=== PATIENT | female | born 1985 | race Caucasian/White ===

== ENCOUNTER → 2017-12-31 | Outpatient (CLI) | payer OTHER ==
--- NOTE | 2017-12-31 09:38 | USB ---
Reason for exam: clinical finding. Indicated problem(s): palpable abnormality in both breasts. Physical Findings: Nurse Summary: 0.5cm nodule 11 o'clock left breast and 1 o'clock right breast (nurse dw). US Breast BILAT Left breast ultrasound includes all four quadrants, the retroareolar region and axilla. Finding demonstrates a 0.8 x 0.6 x 0.4cm benign node at 2 o'clock, a 0.7 x 0.7 x 0.7cm mixed lesion at 5 o'clock probably a complicated cyst, a 0.4 x 0.2 x 0.2cm cystic, benign lesion at 9 o'clock. Right breast ultrasound includes all four quadrants, the retroareolar region and axilla. Finding demonstrates no cystic or solid lesion seen. No abnormality at either upper outer quadrants at the palpable sites. These results were verbally communicated with the patient and result sheet given to the patient on 12/31/17. ASSESSMENT: Probably benign, BI-RAD 3 RECOMMENDATION: Ultrasound of the left breast in 6 months. (attention 5 o'clock)
== END | disposition home or self-care (01) ==
LOC: RADUSWWP 08:06
PROVIDERS: ATTEND Family Medicine
DX: N63.10 Unspecified lump in the right breast, unspecified quadrant (principal); N63.20 Unspecified lump in the left breast, unspecified quadrant

== ENCOUNTER 2018-11-23 10:10 | Emergency (ER) | payer BC, OTHER ==
[2018-11-23 10:32] VITALS: BP 114/66; PULSE 113; RESP 18
--- NOTE | 2018-11-23 11:15 | XR ---
EXAMINATION TYPE: XR chest 2V DATE OF EXAM: 11/23/2018 COMPARISON: NONE HISTORY: Cough/chest pain and flulike symptoms. TECHNIQUE: Frontal and lateral views of the chest are obtained. FINDINGS: There is no focal air space opacity, pleural effusion, or pneumothorax seen. The cardiac silhouette size is within normal limits. The osseous structures are intact. IMPRESSION: No acute cardiopulmonary process.
[2018-11-23 11:16] VITALS: TEMP 99.8
[2018-11-23] MEDS ORDERED: IBUPROFEN 800 MG TAB PO STA (12:34)
--- NOTE | 2018-11-23 12:38 | ED ---
Fever HPI - General Chief Complaint: Fever Stated Complaint: fever, bodyaches, sorethroat Time Seen by Provider: 11/23/18 10:49 Source: patient, RN notes reviewed Mode of arrival: ambulatory Limitations: no limitations - History of Present Illness Initial Comments: 33-year-old female presents emergency Department chief complaint of fever cough congestion sore throat. Patient states that she has been exposed to people with influenza. Patient states her cough is nonproductive. Denies any ear pain. She does complain of a sore throat which is painful at time. Patient denies any headache, dizziness, neck pain or neck stiffness. Patient has not taken any recent Motrin. She did try some Tylenol earlier. Patient denies any nausea vomiting diarrhea constipation. - Related Data Home Medications Medication Instructions Recorded Confirmed D-Methorphan/PE/Acetaminophen 2 cap PO Q4H PRN 11/23/18 11/23/18 [[facility]icks Dayquil Liquicaps] Doxycycline [Vibramycin] 100 mg PO DIRECTED 11/23/18 11/23/18 Previous Rx's Medication Instructions Recorded Azithromycin [Zithromax Z-pack] 0 mg PO DIRECTED #1 pack 11/23/18 Ibuprofen [Motrin] 600 mg PO Q8HR PRN #30 tab 11/23/18 Allergies Allergy/AdvReac Type Severity Reaction Status Date / Time No Known Allergies Allergy Verified 11/23/18 11:07 Review of Systems ROS Statement: Those systems with pertinent positive or pertinent negative responses have been documented in the HPI. ROS Other: All systems not noted in ROS Statement are negative. Past Medical History Past Medical History: No Reported History History of Any Multi-Drug Resistant Organisms: None Reported Past Surgical History: Section Past Psychological History: No Psychological Hx Reported Smoking Status: Current every day smoker Past Alcohol Use History: Occasional Past Drug Use History: None Reported General Exam Limitations: no limitations General appearance: alert, in no apparent distress Head exam: Present: atraumatic, normocephalic, normal inspection Eye exam: Present: normal appearance, PERRL, EOMI. Absent: scleral icterus, c onjunctival injection, periorbital swelling ENT exam: Present: mucous membranes moist, TM's normal bilaterally, normal external ear exam. Absent: normal exam, normal oropharynx (Mild erythema) Neck exam: Present: normal inspection, full ROM. Absent: tenderness, meningismus, lymphadenopathy Respiratory exam: Present: normal lung sounds bilaterally. Absent: respiratory distress, wheezes, rales, rhonchi, stridor Cardiovascular Exam: Present: normal rhythm, tachycardia, normal heart sounds. Absent: systolic murmur, diastolic murmur, rubs, gallop, clicks Course Vital Signs 11/23/18 11/23/18 10:30 11:14 Temperature 100.2 F H 99.8 F H Pulse Rate 113 H Respiratory 18 Rate Blood Pressure 114/66 O2 Sat by Pulse 100 Oximetry Medical Decision Making - Medical Decision Making 33-year-old female presented for fever cough congestion. Patient patient's influenza testing is negative chest x-ray unremarkable. Patient treated for acute pharyngitis. Return parameters were discussed. - Lab Data Lab Results 11/23/18 Range/Units 11:11 Influenza Type A RNA Not Detected (Not Detectd) Influenza Type B (PCR) Not Detected (Not Detectd) Disposition Clinical Impression: Influenza-like illness, Acute bronchitis, Acute pharyngitis Disposition: HOME SELF-CARE Condition: Stable Instructions (If sedation given, give patient instructions): Fever in Adults (ED) Additional Instructions: Please alternate Tylenol and Motrin as directed.Please return to the Emergency Department if symptoms worsen or any other concerns. Prescriptions: Ibuprofen [Motrin] 600 mg PO Q8HR PRN #30 tab PRN Reason: Pain Azithromycin [Zithromax Z-pack] 0 mg PO DIRECTED #1 pack Is patient prescribed a controlled substance at d/c from ED?: No Referrals: Homar Mauro MD [Primary Care Provider] - 1-2 days Time of Disposition: 12:38
== END 2018-11-23 12:52 | disposition home or self-care (01) ==
LOC: EC 10:10
DX: J20.9 Acute bronchitis, unspecified (principal); J02.9 Acute pharyngitis, unspecified; F17.200 Nicotine dependence, unspecified, uncomplicated
CPT/HCPCS: 71046; 87502; 99283

== ENCOUNTER 2018-12-01 13:28 | Emergency (ER) | payer BC ==
[2018-12-01 13:32] VITALS: BP 124/82; PULSE 88; RESP 18; TEMP 98.1
--- NOTE | 2018-12-01 14:37 | ED ---
General Adult HPI - General Chief complaint: Skin/Abscess/Foreign Body Stated complaint: Something stuck in throat Time Seen by Provider: 12/01/18 13:56 Source: patient Mode of arrival: ambulatory Limitations: no limitations - History of Present Illness Initial comments: Pleasant, well appearing 33-year-old female who denies past medical history presenting today for chief complaint of pain with swallowing. Patient states 2 nights ago she was eating Doritos prior to bed, she states the next morning she woke up with pain and swelling, she states today the pain persisted. Patient states pain increases with big cups water she denies any difficulty swallowing liquids or solids. Patient denies any chest pain, vomiting, hematemesis or hemoptysis. Patient denies cough fever chills or night sweats. Patient denies any difficulty breathing. Remaining review of systems negative, including history of antibiotic use within the last 4 days or taking o [id number]/prescription medications. - Related Data Home Medications Medication Instructions Recorded Confirmed No Known Home Medications 12/01/18 12/01/18 Allergies Allergy/AdvReac Type Severity Reaction Status Date / Time No Known Allergies Allergy Verified 12/01/18 13:44 Review of Systems ROS Statement: Those systems with pertinent positive or pertinent negative responses have been documented in the HPI. ROS Other: All systems not noted in ROS Statement are negative. Past Medical History Past Medical History: No Reported History History of Any Multi-Drug Resistant Organisms: None Reported Past Surgical History: Section Past Psychological History: No Psychological Hx Reported Smoking Status: Current every day smoker Past Alcohol Use History: Occasional Past Drug Use History: None Reported General Exam - General Exam Comments Initial Comments: General: The patient is awake and alert, in no distress, and does not appear acutely ill. Eye: Pupils are equal, round and reactive to light, extra-ocular movements are intact. No nystagmus. There is normal conjunctiva bilaterally. No signs of icterus. Ears, nose, mouth and throat: There are moist mucous membranes and no oral lesions. Oropharynx nonerythematous no tonsillar enlargement exudates or lesions. Uvula midline. Normal swallow. No masses of the neck. Or lymphadenopathy. No tripoding, drooling or muffled voice. Neck: The neck is supple, there is no tenderness or JVD. No crepitus to the patient the anterior chest wall. Cardiovascular: There is a regular rate and rhythm. No murmur, rub or gallop is appreciated. Respiratory: Lungs are clear to auscultation, respirations are non-labored, breath sounds are equal. No wheezes, stridor, rales, or rhonchi. Musculoskeletal: Normal ROM, no tenderness. Strength 5/5. Sensation intact. Pulses equal bilaterally 2+. Neurological: A&O x 3. CN II-XII intact grossly, There are no obvious motor or sensory deficits. Coordination appears grossly intact. Speech is normal. Skin: Skin is warm and dry and no rashes or lesions are noted. Psychiatric: Cooperative, appropriate mood & affect, normal judgment. Limitations: no limitations Course Vital Signs 12/01/18 13:29 Temperature 98.1 F Pulse Rate 88 Respiratory 18 Rate Blood Pressure 124/82 O2 Sat by Pulse 99 Oximetry Medical Decision Making - Medical Decision Making 33-year-old feel presenting for pain with swallowing. Patient appears well upon arrival no signs of acute distress. Patient denies any difficulty swallowing. Patient able to swallow liquids and solids. Physical examination unremarkable. Patient denies any ingestion of any substances, or recent administration of prescription or [id number] pills. Patient has no infectious symptoms or signs on physical examination. Patient will be discharged with primary care follow-up and return for worsening symptoms or hematemesis, hemoptysis, chest pain. Pt VS within acceptable limits. Pt discharge appearing well. Discussed case with attending provider Dr. Thomas this time we feel pt is stable for discharge and pain is most likely from superficial abrasion/laceration from abrasive food substance. Disposition Clinical Impression: Odynophagia Disposition: HOME SELF-CARE Condition: Good Instructions (If sedation given, give patient instructions): Esophageal Foreign Body (ED) Additional Instructions: Please use medication as discussed. Please follow-up with family doctor in the next 2 days of symptoms have not improved. Please return to emergency room if the symptoms increase or worsen or for any other concerns. Is patient prescribed a controlled substance at d/c from ED?: No Referrals: Homar Mauro MD [Primary Care Provider] - 1-2 days Time of Disposition: 14:37
== END 2018-12-01 14:48 | disposition home or self-care (01) ==
LOC: EC 13:28
DX: R13.10 Dysphagia, unspecified (principal); R07.0 Pain in throat; R22.1 Localized swelling, mass and lump, neck; F17.200 Nicotine dependence, unspecified, uncomplicated
CPT/HCPCS: 99283

== ENCOUNTER 2019-02-05 03:53 | Emergency (ER) | payer BC, OTHER ==
[2019-02-05 03:59] VITALS: BP 116/77; PULSE 71; RESP 20; TEMP 98.5
--- NOTE | 2019-02-05 04:20 | ED ---
URI HPI - General Chief Complaint: Upper Respiratory Infection Stated Complaint: SINDY Time Seen by Provider: 02/05/19 04:03 Source: patient Mode of arrival: ambulatory Limitations: no limitations - History of Present Illness Initial Comments: Rajesh is a 33-year-old female presents the emergency department today for evaluation of productive cough for 2 weeks duration as well as oral sores. Patient reports approximately 2 weeks ago she saw her primary care physician for this cough, she would advised that there is pneumonia going around and was prescribed an antibiotic however after 3 days to be used she developed a vaginal yeast infection decided to stop taking antibiotic. She reports that 4 days ago she stopped smoking cigarettes but has continued to have a nonproductive cough and sore throat since that time. Patient denies any fevers, chills nausea or vomiting. She does report some nasal congestion and postnasal drip and is also noticed some sores on her tongue. Patient reports that she was evaluated by the physician 2 weeks ago she was told that she may have a sore throat as well. Patient also noted some sore developing on her lip and does have a history of cold sores. MD Complaint: cough Onset/Timin -: week(s) Severity: moderate Consistency: intermittent Improves With: other (Albuterol inhaler) Worsens With: nothing Associated Symptoms: rhinorrhea, nasal congestion, sore throat Treatments Prior to Arrival: antibiotics - Related Data Previous Rx's Medication Instructions Recorded Cetirizine HCl [Zyrtec] 10 mg PO DAILY #30 tab 02/05/19 Fluticasone Nasal [place] [Flonase 2 spr EA NOSTRIL DAILY #1 bottle 02/05/19 Nasal [place]] predniSONE [Deltasone] 40 mg PO DAILY 5 Days #10 tablet 02/05/19 valACYclovir HCL [Valtrex] 1,000 mg PO Q8HR #21 tab 02/05/19 Allergies Allergy/AdvReac Type Severity Reaction Status Date / Time No Known Allergies Allergy Verified 02/05/19 03:59 Review of Systems ROS Statement: Those systems with pertinent positive or pertinent negative responses have been documented in the HPI. ROS Other: All systems not noted in ROS Statement are negative. Past Medical History Past Medical History: No Reported History History of Any Multi-Drug Resistant Organisms: None Reported Past Surgical History: Section Past Psychological History: No Psychological Hx Reported Smoking Status: Current every day smoker Past Alcohol Use History: Occasional Past Drug Use History: None Reported General Exam Limitations: no limitations Course Vital Signs 02/05/19 03:57 Temperature 98.5 F Pulse Rate 71 Respiratory 20 Rate Blood Pressure 116/77 O2 Sat by Pulse 100 Oximetry Medical Decision Making - Medical Decision Making The patient was seen and evaluated history was obtained from patient History and physical exam are concerning for sinusitis with postnasal drip causing a chronic cough in addition the patient is a smoker who quit smoking only 4 days ago. I do feel that this contributes to her cough. Patient reports that throughout her life she has been treated with albuterol for coughs though she's never been formally diagnosed with asthma. exam revealed clear lungs with no crackles rails wheezing have no concern for pneumonia or asthma exacerbation at this time the patient did use her albuterol inhaler prior to arrival Patient does have cold sores developing on her right-sided lower lip as well as some sores in her mouth I will treat for cold sore with Valtrex and steroids. Disposition Clinical Impression: Post-nasal drainage, Smokers' cough, Stomatitis Disposition: HOME SELF-CARE Condition: Stable Instructions (If sedation given, give patient instructions): Canker Sores (ED), Postnasal Drip (DC) Prescriptions: predniSONE [Deltasone] 40 mg PO DAILY 5 Days #10 tablet Fluticasone Nasal [place] [Flonase Nasal [place]] 2 spr EA NOSTRIL DAILY #1 bottle valACYclovir HCL [Valtrex] 1,000 mg PO Q8HR #21 tab Cetirizine HCl [Zyrtec] 10 mg PO DAILY #30 tab Is patient prescribed a controlled substance at d/c from ED?: No Referrals: Homar Mauro MD [Primary Care Provider] - 1-2 days
== END 2019-02-05 04:31 | disposition home or self-care (01) ==
LOC: EC 03:53
DX: K12.1 Other forms of stomatitis (principal); J41.0 Simple chronic bronchitis; R09.82 Postnasal drip; F17.210 Nicotine dependence, cigarettes, uncomplicated
CPT/HCPCS: 99284

== ENCOUNTER 2019-08-26 03:50 | Emergency (ER) | payer OTHER ==
--- NOTE | 2019-08-26 04:23 | ED ---
Abdominal Pain HPI - General Chief Complaint: Abdominal Pain Stated Complaint: Back Pain Time Seen by Provider: 08/26/19 04:21 Source: patient, family Mode of arrival: ambulatory Limitations: no limitations - History of Present Illness Initial Comments: Brooke is a 34-year-old female presents the emergency department today for evaluation of urinary tract infection symptoms and right flank pain. Patient reports that over the weekend she developed some dysuria and urinary frequency. She reports that she tried drinking a lot of water to wash out any urinary infection reports that her symptoms did improve transiently however throughout the day yesterday she had persistent dysuria and urinary frequency. In the evening the discomfort is getting worse and she started having pain in her right flank which prompted her come to the ER however she noted that there was a wait and decided instead to leave. Patient states that she went home and is laying in bed but continues to have pain in her right flank and became concerned that the infection may have travel to her kidney so she came back to the ER for further evaluation. Patient denies any associative fevers chills nausea vomiting or change in bowel habits. She does have a history of occasional UTIs in the past. She denies any concern for or sexual transmitted infections at this time. - Related Data Previous Rx's Medication Instructions Recorded Cetirizine HCl [Zyrtec] 10 mg PO DAILY #30 tab 02/05/19 Fluticasone Nasal [place] [Flonase 2 spr EA NOSTRIL DAILY #1 bottle 02/05/19 Nasal [place]] predniSONE [Deltasone] 40 mg PO DAILY 5 Days #10 tablet 02/05/19 valACYclovir HCL [Valtrex] 1,000 mg PO Q8HR #21 tab 02/05/19 Sulfamethox-Tmp 800-160Mg [Bactrim 1 tab PO Q12HR #10 tab 08/26/19 DS 800-160 mg] Allergies Allergy/AdvReac Type Severity Reaction Status Date / Time No Known Allergies Allergy Verified 08/26/19 04:10 Review of Systems ROS Statement: Those systems with pertinent positive or pertinent negative responses have been documented in the HPI. ROS Other: All systems not noted in ROS Statement are negative. Past Medical History Past Medical History: No Reported History History of Any Multi-Drug Resistant Organisms: None Reported Past Surgical History: Section Past Psychological History: No Psychological Hx Reported Smoking Status: Current some day smoker Past Alcohol Use History: Occasional Past Drug Use History: None Reported General Exam - General Exam Comments Initial Comments: Physical Exam GENERAL: Patient is well-developed and well-nourished. Patient is nontoxic and well- hydrated and is in no distress. HENT: Normocephalic, Atraumatic. EYES: PERRL, EOMI PULMONARY: Unlabored respirations. No audible rales rhonchi or wheezing was noted. CARDIOVASCULAR: There is a regular rate and rhythm without any murmurs gallops or rubs. ABDOMEN: Soft and nontender with normal bowel sounds. Pain to percussion of right flank No pain to palpation in right lower quadrant SKIN: Skin is clear with no lesions or rashes and otherwise unremarkable. : Deferred NEUROLOGIC: Patient is alert and oriented x3. Moving all extremities spontaneously MUSCULOSKELETAL: Normal extremities with adequate strength and full range of motion. No lower extremity swelling or edema. No calf tenderness. PSYCHIATRIC: Normal psychiatric evaluation. Limitations: no limitations Course Vital Signs 08/26/19 08/26/19 08/26/19 04:07 07:30 08:50 Temperature 97.9 F 98.7 F 98.5 F Pulse Rate 74 75 71 Respiratory 20 18 18 Rate Blood Pressure 134/81 116/67 114/61 O2 Sat by Pulse 99 98 99 Oximetry Medical Decision Making - Medical Decision Making Patient was seen and evaluated history is obtained from the patient History of physical exam are concerning for urinary tract infection versus kidney stone though the patient has no history of. Patient had dysuria for 3 days now having right-sided flank pain. No fevers chills nausea or vomiting. Vital signs are within normal limits physical exam is unremarkable. Urinalysis is completed by the fact the patient is currently menstruating and there is blood in the urine however there is evidence of infection with bacteria leuk esterase and 60 white blood cells noted. Macrobid was ordered. Patient very anxious about diagnosing urinary tract infection requesting blood work be done therefore CBC CMP and CRP were ordered. Labs with no significant abnormalities noted, no leukocytosis, only mild elevation of CRP Patient sleeping comfortably upon re-evaluation, results were discussed, patient discharged home on oral bactrim for treatment of UTI Return parameters discussed, patient discharged home in stable condition. - Lab Data Result diagrams: 08/26/19 05:37 08/26/19 05:37 Lab Results 08/26/19 08/26/1919 Range/Units 04:23 04:23 05:37 WBC (3.8-10.6) k/uL RBC (3.80-5.40) m/uL Hgb (11.4-16.0) gm/dL Hct (34.0-46.0) % MCV (80.0-100.0) fL MCH (25.0-35.0) pg MCHC (31.0-37.0) g/dL RDW (11.5-15.5) % Plt Count (150-450) k/uL Neutrophils % % Lymphocytes % % Monocytes % % Eosinophils % % Basophils % % Neutrophils # (1.3-7.7) k/uL Lymphocytes # (1.0-4.8) k/uL Monocytes # (0-1.0) k/uL Eosinophils # (0-0.7) k/uL Basophils # (0-0.2) k/uL Sodium 138 (137-145) mmol/L Potassium 4.3 (3.5-5.1) mmol/L Chloride 105 (98-107) mmol/L Carbon Dioxide 27 (22-30) mmol/L Anion Gap 6 mmol/L BUN 8 (7-17) mg/dL Creatinine 0.55 (0.52-1.04) mg/dL Est GFR (CKD-EPI)AfAm >90 (>60 ml/min/1.73 sqM) Est GFR (CKD-EPI)NonAf >90 (>60 ml/min/1.73 sqM) Glucose 90 (74-99) mg/dL Calcium 9.1 (8.4-10.2) mg/dL Total Bilirubin 0.6 (0.2-1.3) mg/dL AST 23 (14-36) U/L ALT 17 (4-34) U/L Alkaline Phosphatase 67 (38-126) U/L C-Reactive Protein 36.0 H (<10.0) mg/L Total Protein 6.5 (6.3-8.2) g/dL Albumin 3.7 (3.5-5.0) g/dL Urine Color Light Yellow Urine Appearance Cloudy H (Clear) Urine pH 6.5 (5.0-8.0) Ur Specific [place] 1.009 (1.001-1.035) Urine Protein 1+ H (Negative) Urine Glucose (UA) Negative (Negative) Urine Ketones Negative (Negative) Urine Blood Moderate H (Negative) Urine Nitrite Negative (Negative) Urine Bilirubin Negative (Negative) Urine Urobilinogen <2.0 (<2.0) mg/dL Ur Leukocyte Esterase Large H (Negative) Urine RBC >182 H (0-5) /hpf Urine WBC 62 H (0-5) /hpf Ur Squamous Epith Cells <1 (0-4) /hpf Urine Bacteria Rare H (None) /hpf Urine Mucus Rare H (None) /hpf Urine HCG, Qual Not Detected (Not Detectd) 08/26/19 Range/Units 05:37 WBC 9.1 (3.8-10.6) k/uL RBC 4.04 (3.80-5.40) m/uL Hgb 12.1 (11.4-16.0) gm/dL Hct 36.3 (34.0-46.0) % MCV 90.0 (80.0-100.0) fL MCH 29.9 (25.0-35.0) pg MCHC 33.2 (31.0-37.0) g/dL RDW 12.5 (11.5-15.5) % Plt Count 151 (150-450) k/uL Neutrophils % 66 % Lymphocytes % 18 % Monocytes % 7 % Eosinophils % 6 % Basophils % 1 % Neutrophils # 6.0 (1.3-7.7) k/uL Lymphocytes # 1.7 (1.0-4.8) k/uL Monocytes # 0.6 (0-1.0) k/uL Eosinophils # 0.6 (0-0.7) k/uL Basophils # 0.1 (0-0.2) k/uL Sodium (137-145) mmol/L Potassium (3.5-5.1) mmol/L Chloride (98-107) mmol/L Carbon Dioxide (22-30) mmol/L Anion Gap mmol/L BUN (7-17) mg/dL Creatinine (0.52-1.04) mg/dL Est GFR (CKD-EPI)AfAm (>60 ml/min/1.73 sqM) Est GFR (CKD-EPI)NonAf (>60 ml/min/1.73 sqM) Glucose (74-99) mg/dL Calcium (8.4-10.2) mg/dL Total Bilirubin (0.2-1.3) mg/dL AST (14-36) U/L ALT (4-34) U/L Alkaline Phosphatase (38-126) U/L C-Reactive Protein (<10.0) mg/L Total Protein (6.3-8.2) g/dL Albumin (3.5-5.0) g/dL Urine Color Urine Appearance (Clear) Urine pH (5.0-8.0) Ur Specific [place] (1.001-1.035) Urine Protein (Negative) Urine Glucose (UA) (Negative) Urine Ketones (Negative) Urine Blood (Negative) Urine Nitrite (Negative) Urine Bilirubin (Negative) Urine Urobilinogen (<2.0) mg/dL Ur Leukocyte Esterase (Negative) Urine RBC (0-5) /hpf Urine WBC (0-5) /hpf Ur Squamous Epith Cells (0-4) /hpf Urine Bacteria (None) /hpf Urine Mucus (None) /hpf Urine HCG, Qual (Not Detectd) Disposition Clinical Impression: UTI (urinary tract infection) Disposition: HOME SELF-CARE Condition: Stable Instructions (If sedation given, give patient instructions): Urinary Tract Infection in Women (ED) Additional Instructions: Have a urinary tract infection today, we are prescribed antibiotics, complete the course of antibiotics even if her symptoms resolve Follow-up with your primary care physician for repeat urinalysis to ensure the urine infection has resolved Return to the emergency department if you have any worsening fever, pain or nausea and vomiting inability take antibiotics or develop any new or concerning symptoms Prescriptions: Sulfamethox-Tmp 800-160Mg [Bactrim DS 800-160 mg] 1 tab PO Q12HR #10 tab Is patient prescribed a controlled substance at d/c from ED?: No Referrals: Homar Mauro MD [Primary Care Provider] - 1-2 days
[2019-08-26 04:41] LABS: Appearance,Urine Cloudy (Clear); Bacteria,Urine Rare /hpf; Bilirubin,Urine Negative (Negative); Blood,Urine Moderate (Negative); Color,Urine Light Yellow; Glucose,Urine (UA) Negative (Negative); Ketones,Urine Negative (Negative); Leukocyte Esterase,Urine Large (Negative); Mucus,Urine Rare /hpf; Nitrite,Urine Negative (Negative); PH, Urine 6.5 (5.0-8.0); Protein,Urine 1+ (Negative); RBC,Urine >182 /hpf (0-5); Specific Gravity,Urine 1.009 (1.001-1.035); Squamous Epithelial Cell,Urine <1 /hpf (0-4); Urobilinogen,Urine <2.0 mg/dL (<2.0); WBC,Urine 62 /hpf (0-5)
[2019-08-26] MEDS ORDERED: NITROFURANTOIN MONOHYD/M-CRYST 100 MG CAP PO STA (05:27)
[2019-08-26 06:28] LABS: Basophils # (A) 0.1 k/uL (0-0.2); Basophils % (A) 1 %; Eosinophils # (A) 0.6 k/uL (0-0.7); Eosinophils % (A) 6 %; HCT 36.3 % (34.0-46.0); HGB 12.1 gm/dL (11.4-16.0); Lymphocytes # (A) 1.7 k/uL (1.0-4.8); Lymphocytes % (A) 18 %; MCH 29.9 pg (25.0-35.0); MCHC 33.2 g/dL (31.0-37.0); Mean Platelet Volume 10.2; Monocytes # (A) 0.6 k/uL (0-1.0); Monocytes % (A) 7 %; Neutrophils % (A) 66 %; Platelet Count 151 k/uL (150-450); RBC 4.04 m/uL (3.80-5.40); RDW 12.5 % (11.5-15.5); WBC 9.1 k/uL (3.8-10.6)
[2019-08-26 06:49] LABS: ALT 17 U/L (4-34); AST 23 U/L (14-36); African American GFR (CKD) >90 (>60 ml/min/1.73 sqM); Albumin 3.7 g/dL (3.5-5.0); Alkaline Phosphatase 67 U/L (38-126); Anion Gap 6 mmol/L; Blood Urea Nitrogen 8 mg/dL (7-17); Calcium 9.1 mg/dL (8.4-10.2); Carbon Dioxide 27 mmol/L (22-30); Chloride 105 mmol/L (98-107); Glucose 90 mg/dL (74-99); Non-African American GFR(CKD) >90 (>60 ml/min/1.73 sqM); Potassium 4.3 mmol/L (3.5-5.1); Sodium 138 mmol/L (137-145); Total Bilirubin 0.6 mg/dL (0.2-1.3); Total Protein 6.5 g/dL (6.3-8.2)
[2019-08-26 07:32] VITALS: RESP 18
[2019-08-26 08:51] VITALS: BP 114/61; PULSE 71; TEMP 98.5
== END 2019-08-26 08:50 | disposition home or self-care (01) ==
LOC: EC 03:50
DX: N39.0 Urinary tract infection, site not specified (principal); F17.200 Nicotine dependence, unspecified, uncomplicated
CPT/HCPCS: 36415; 80053; 81001; 81025; 85025; 86140; 87077; 87086; 87186; 99284

== ENCOUNTER 2020-02-20 10:03 | Emergency (ER) | payer OTHER ==
[2020-02-20 10:09] VITALS: BP 122/77; TEMP 98.3
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
--- NOTE | 2020-02-20 10:46 | XR ---
EXAMINATION TYPE: XR hand complete RT , 3 VIEWS DATE OF EXAM ORDERED: 02/20/2020 HISTORY: pain, injury. COMPARISON: None. FINDINGS: No fracture, dislocation or other acute osseous lesion is seen. IMPRESSION: NO ACUTE OSSEOUS LESION.
[2020-02-20 11:17] VITALS: RESP 20
[2020-02-20 11:18] VITALS: PULSE 78
== END 2020-02-20 11:18 | disposition home or self-care (01) ==
LOC: EC 10:03
DX: S60.221A Contusion of right hand, initial encounter (principal); W22.8XXA Striking against or struck by other objects, initial encounter; Y92.009 Unspecified place in unspecified non-institutional (private) residence as the place of occurrence of the external cause
CPT/HCPCS: 99283

== ENCOUNTER 2020-06-06 18:22 | Emergency (ER) | payer OTHER ==
[2020-06-06 18:35] VITALS: BP 129/78; PULSE 76; RESP 18; TEMP 98.2
[2020-06-06] MEDS ORDERED: BACITRACIN OINT 1 EACH PACKET TOPICAL ONE (18:54)
[2020-06-06] MEDS ORDERED: LIDOCAINE 1% INJ 10MG/ML (20 ML MDV) SQ ONE (18:54)
--- NOTE | 2020-06-06 19:14 | XR ---
EXAMINATION TYPE: XR finger RT DATE OF EXAM: 06/06/2020 COMPARISON: Right hand xray February 20, 2020 HISTORY: Pain after crushing injury. TECHNIQUE: 3 views right fourth finger are acquired FINDINGS: No acute fracture or dislocation in the fourth finger right hand. Joint spaces are maintain ed. Overlying soft tissue is unremarkable. IMPRESSION: As above.
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
== END 2020-06-06 20:40 | disposition home or self-care (01) ==
LOC: EC 18:22
DX: S61.214A Laceration without foreign body of right ring finger without damage to nail, initial encounter (principal); W22.8XXA Striking against or struck by other objects, initial encounter; Y93.89 Activity, other specified; Y92.009 Unspecified place in unspecified non-institutional (private) residence as the place of occurrence of the external cause
CPT/HCPCS: 73140; 99283; 12001; J2001

== ENCOUNTER → 2020-09-05 | Outpatient (CLI) | payer OTHER ==
--- NOTE | 2020-09-05 17:36 | ECHOF ---
Referral Reason:R00.2 Palpitations MEASUREMENTS -------- HEIGHT: 167.6 cm WEIGHT: 65.8 kg BP: RVIDd: 2.7 cm (< 3.3) IVSd: 1.0 cm (0.6 - 1.1) LVIDd: 3.9 cm (3.9 - 5.3) LVPWd: 1.1 cm (0.6 - 1.1) IVSs: 1.3 cm LVIDs: 2.8 cm LVPWs: 1.5 cm LAESV Index (A-L): 21.37 ml/m Ao Diam: 2.5 cm (2.0 - 3.7) AV Cusp: 2.0 cm (1.5 - 2.6) LA Diam: 2.7 cm (2.7 - 3.8) MV EXCURSION: 23.080 mm (> 18.000) MV EF SLOPE: 171 mm/s (70 - 150) EPSS: 0.5 cm MV E Vimal: 1.15 m/s MV DecT: 205 ms MV A Vimal: 0.65 m/s MV E/A Ratio: 1.77 RAP: 5.00 mmHg RVSP: 24.55 mmHg FINDINGS -------- This was a technically good study. The left ventricular size is normal. Left ventricular wall thickness is normal. Overall left vent ricular systolic function is normal with, an EF between 55 - 60 %. The diastolic filling pattern is normal for the age of the patient 10.09. The right ventricle is normal in size. The left atrial size is normal. Normal LA size by volume 22+/-6 ml/m2. The right atrial size is normal. Interatrial and interventricular septum intact. The aortic valve is trileaflet and appears structurally normal. The mitral valve is normal. Mild mitral regurgitation is present. Cannot exclude mitral valve pro lapse , predominately a posteriorly directed jet. The tricuspid valve appears structurally normal. Mild tricuspid regurgitation present. Right vent ricular systolic pressure is normal at < 35 mmHg. Trace/mild (physiologic) pulmonic regurgitation. The aortic root size is normal. Normal inferior vena cava with normal inspiratory collapse consistent with estimated right atrial pre ssure of 5 mmHg. There is no pericardial effusion. CONCLUSIONS -------- 1. The left ventricular size is normal. 2. Left ventricular wall thickness is normal. 3. Overall left ventricular systolic function is normal with, an EF between 55 - 60 %. 4. The diastolic filling pattern is normal for the age of the patient 10.09 5. Mild mitral regurgitation is present. 6. Cannot exclude mitral valve prolapse. 7. , predominately a posteriorly directed jet. 8. Mild tricuspid regurgitation present. 9. Trace/mild (physiologic) pulmonic regurgitation. 10. There is no pericardial effusion. [employer]UAL [employer]ER[employer]Y TEACHER: Nanci Alexander RDCS
== END | disposition home or self-care (01) ==
LOC: RADECHMAIN 15:24
PROVIDERS: ATTEND Family Medicine
DX: I08.1 Rheumatic disorders of both mitral and tricuspid valves (principal); I37.1 Nonrheumatic pulmonary valve insufficiency
CPT/HCPCS: 93306

== ENCOUNTER → 2020-10-24 | Outpatient (CLI) | payer OTHER ==
--- NOTE | 2020-10-24 14:23 | MM ---
Reason for exam: screening (asymptomatic). Baseline mammogram. Physical Findings: Nurse did not find any significant physical abnormalities on exam. MG 3D Screening Mammo W/Cad Bilateral CC and MLO view(s) were taken. The breast tissue is heterogeneously dense. This may lower the sensitivity of mammography. There is chronic nodularity bilateral axilla, ultrasound 12/31/17 showed benign left axillary lymph node. There is no discrete abnormality. These results were verbally communicated with the patient and result sheet given to the patient on 10/24/20. ASSESSMENT: Benign, BI-RAD 2 RECOMMENDATION: Routine screening mammogram of both breasts at age 40.
== END | disposition home or self-care (01) ==
LOC: RADMAMWWP 13:38
PROVIDERS: ATTEND Obstetrics & Gynecology
DX: Z12.31 Encounter for screening mammogram for malignant neoplasm of breast (principal)
CPT/HCPCS: 77063; 77067

== ENCOUNTER 2021-06-10 13:07 | Emergency (ER) | payer OTHER ==
[2021-06-10 13:17] VITALS: RESP 18; TEMP 97.7
[2021-06-10] MEDS ORDERED: diphenhydrAMINE 50 MG/ML 1 ML VIAL IVP STA (13:25)
[2021-06-10] MEDS ORDERED: SODIUM CHLORIDE 0.9% 1,000 ML IV STA (13:25)
[2021-06-10] MEDS ORDERED: ONDANSETRON 4 MG/2 ML VIAL IVP STA (13:26)
[2021-06-10 13:51] LABS: Basophils # (A) 0.1 k/uL (0-0.2); Basophils % (A) 1 %; Eosinophils # (A) 0.1 k/uL (0-0.7); Eosinophils % (A) 1 %; HCT 39.8 % (34.0-46.0); HGB 13.5 gm/dL (11.4-16.0); Lymphocytes # (A) 3.3 k/uL (1.0-4.8); Lymphocytes % (A) 37 %; MCH 31.6 pg (25.0-35.0); MCHC 34.1 g/dL (31.0-37.0); MCV 92.7 fL (80.0-100.0); Monocytes # (A) 0.5 k/uL (0-1.0); Monocytes % (A) 5 %; Neutrophils # (A) 4.6 k/uL (1.3-7.7); Neutrophils % (A) 53 %; Platelet Count 266 k/uL (150-450); RBC 4.29 m/uL (3.80-5.40); RDW 12.6 % (11.5-15.5); WBC 8.8 k/uL (3.8-10.6)
[2021-06-10 14:02] LABS: ALT 18 U/L (4-34); AST 27 U/L (14-36); African American GFR (CKD) >90 (>60 ml/min/1.73 sqM); Albumin 4.5 g/dL (3.5-5.0); Alkaline Phosphatase 105 U/L (38-126); Amylase 50 U/L (30-110); Anion Gap 17 mmol/L; Blood Urea Nitrogen 10 mg/dL (7-17); Calcium 9.9 mg/dL (8.4-10.2); Carbon Dioxide 15 mmol/L (22-30); Chloride 101 mmol/L (98-107); Glucose 173 mg/dL (74-99); Lipase 115 U/L (23-300); Non-African American GFR(CKD) >90 (>60 ml/min/1.73 sqM); Potassium 3.5 mmol/L (3.5-5.1); Sodium 133 mmol/L (137-145); Total Bilirubin 1.5 mg/dL (0.2-1.3); Total Protein 7.5 g/dL (6.3-8.2)
[2021-06-10 14:13] VITALS: BP 126/77; PULSE 74
--- NOTE | 2021-06-10 14:23 | ED ---
Allergic Reaction HPI - General Source: patient, RN notes reviewed Mode of arrival: wheelchair Limitations: no limitations <Mani Perez - Last Filed: 06/10/21 14:16> <Kanchan Duron - Last Filed: 06/11/21 00:48> - General Chief complaint: Allergic Reaction Stated complaint: Allergic Reaction Time Seen by Provider: 06/10/21 13:20 - History of Present Illness Initial Comments: Patient is a 36 she'll female that presents to emergency department complaining of nausea vomiting shortly after taking her [id number]-ogexbis mood medication. She notes that her doctor told her to take 5 HTP. She notes that she usually takes 2 tablets but took 3 a day on an empty stomach and instantly had stomach cramping with nausea and vomiting. Significant other notes that there underwent all rolled with a minute several exits out of town for the trunk of the emergency room. Patient denied any history of panic attacks. Patient was otherwise well-appearing in minimal distress leaning over a puked basin with minimal green-colored emesis. Patient denied any chest pain shortness of breath headache diarrhea constipation fever fatigue chills. (Mani Perez) - Related Data Previous Rx's Medication Instructions Recorded Cetirizine HCl [Zyrtec] 10 mg PO DAILY #30 tab 02/05/19 Fluticasone Nasal [place] [Flonase 2 spr EA NOSTRIL DAILY #1 bottle 02/05/19 Nasal [place]] predniSONE [Deltasone] 40 mg PO DAILY 5 Days #10 tablet 02/05/19 valACYclovir HCL [Valtrex] 1,000 mg PO Q8HR #21 tab 02/05/19 Sulfamethox-Tmp 800-160Mg [Bactrim 1 tab PO Q12HR #10 tab 08/26/19 DS 800-160 mg] Allergies Allergy/AdvReac Type Severity Reaction Status Date / Time No Known Allergies Allergy Verified 06/10/21 13:17 Review of Systems ROS Other: All systems not noted in ROS Statement are negative. <Mani Perez - Last Filed: 06/10/21 14:16> ROS Other: All systems not noted in ROS Statement are negative. <Kanchan Duron - Last Filed: 06/11/21 00:48> ROS Statement: Those systems with pertinent positive or pertinent negative responses have been documented in the HPI. Past Medical History Past Medical History: No Reported History History of Any Multi-Drug Resistant Organisms: None Reported Past Surgical History: Section Past Psychological History: No Psychological Hx Reported Smoking Status: Never smoker Past Alcohol Use History: Occasional Past Drug Use History: Marijuana <Mani Perez - Last Filed: 06/10/21 14:16> General Exam Limitations: no limitations General appearance: alert, in no apparent distress Head exam: Present: atraumatic, normocephalic, normal inspection Eye exam: Present: normal appearance, PERRL, EOMI. Absent: scleral icterus, co njunctival injection, periorbital swelling ENT exam: Present: normal exam, mucous membranes moist Neck exam: Present: normal inspection Respiratory exam: Present: normal lung sounds bilaterally. Absent: respiratory distress, wheezes, rales, rhonchi, stridor Cardiovascular Exam: Present: regular rate, normal rhythm, normal heart sounds. Absent: systolic murmur, diastolic murmur, rubs, gallop, clicks GI/Abdominal exam: Present: soft, normal bowel sounds. Absent: distended, tenderness, guarding, rebound, rigid Extremities exam: Present: normal inspection, full ROM, normal capillary refill. Absent: tenderness, pedal edema, joint swelling, calf tenderness Neurological exam: Present: alert, oriented X3 Psychiatric exam: Present: normal affect, normal mood Skin exam: Present: warm, dry, intact, normal color. Absent: rash <Mani Perez - Last Filed: 06/10/21 14:16> Course Vital Signs 06/10/21 06/10/21 06/10/21 13:12 13:40 14:12 Temperature 97.7 F Pulse Rate 104 H 74 Respiratory 18 18 18 Rate Blood Pressure 156/116 126/77 O2 Sat by Pulse 97 100 Oximetry 06/10/21 14:25 Temperature 97.7 F Pulse Rate 74 Respiratory 18 Rate Blood Pressure 126/77 O2 Sat by Pulse 100 Oximetry Medical Decision Making - Lab Data Result diagrams: 06/10/21 13:39 06/10/21 13:39 <Mani Perez - Last Filed: 06/10/21 14:16> - Lab Data Result diagrams: 06/10/21 13:39 06/10/21 13:39 <Kanchan Duron - Last Filed: 06/11/21 00:48> - Medical Decision Making 36-year-old female complaining nausea vomiting abdominal pain after taking 1 tablet medication. Basic labs, 1 L normal saline, 50 mg Benadryl, 4 g Zofran ordered. Labs were unremarkable Patient most likely experiencing a small adverse reaction to [id number]-cembtih medication and panic attack. Upon recheck heart rate was 74, rest of vital stable. Case discussed with Dr. Duron, patient can discharge home with follow-up primary care. (Mani Perez) I was available for consultation in the emergency department. The history and physical exam were done by the midlevel provider. I was consulted for this patients care. I reviewed the case with the midlevel provider and based on their presentation of the patient, I agree with the assessment, medical decision making and plan of care as documented. Chart was dictated using [employer] dictation software. Attempts were made to angel ect any dictation errors however some typographical errors may persist. (Kanchan Duron) - Lab Data Lab Results 06/10/21 06/10/21 Range/Units 13:39 13:39 WBC 8.8 (3.8-10.6) k/uL RBC 4.29 (3.80-5.40) m/uL Hgb 13.5 (11.4-16.0) gm/dL Hct 39.8 (34.0-46.0) % MCV 92.7 (80.0-100.0) fL MCH 31.6 (25.0-35.0) pg MCHC 34.1 (31.0-37.0) g/dL RDW 12.6 (11.5-15.5) % Plt Count 266 (150-450) k/uL MPV 9.0 Neutrophils % 53 % Lymphocytes % 37 % Monocytes % 5 % Eosinophils % 1 % Basophils % 1 % Neutrophils # 4.6 (1.3-7.7) k/uL Lymphocytes # 3.3 (1.0-4.8) k/uL Monocytes # 0.5 (0-1.0) k/uL Eosinophils # 0.1 (0-0.7) k/uL Basophils # 0.1 (0-0.2) k/uL Sodium 133 L (137-145) mmol/L Potassium 3.5 (3.5-5.1) mmol/L Chloride 101 (98-107) mmol/L Carbon Dioxide 15 L (22-30) mmol/L Anion Gap 17 mmol/L BUN 10 (7-17) mg/dL Creatinine 0.61 (0.52-1.04) mg/dL Est GFR (CKD-EPI)AfAm >90 (>60 ml/min/1.73 sqM) Est GFR (CKD-EPI)NonAf >90 (>60 ml/min/1.73 sqM) Glucose 173 H (74-99) mg/dL Calcium 9.9 (8.4-10.2) mg/dL Total Bilirubin 1.5 H (0.2-1.3) mg/dL AST 27 (14-36) U/L ALT 18 (4-34) U/L Alkaline Phosphatase 105 (38-126) U/L Total Protein 7.5 (6.3-8.2) g/dL Albumin 4.5 (3.5-5.0) g/dL Amylase 50 (30-110) U/L Lipase 115 (23-300) U/L Disposition Is patient prescribed a controlled substance at d/c from ED?: No Time of Disposition: 14:23 <Mani Perez - Last Filed: 06/10/21 14:16> <Kanchan Duron - Last Filed: 06/11/21 00:48> Clinical Impression: Adverse reaction to drug Disposition: HOME SELF-CARE Condition: Stable Instructions (If sedation given, give patient instructions): Adverse Drug Reaction (ED) Additional Instructions: Please return to the Emergency Department if symptoms worsen or any other concerns. Follow-up with primary care 1-2 days. Take medications with food to prevent any further incidents. Referrals: Homar Mauro MD [Primary Care Provider] - 1-2 days
== END 2021-06-10 14:28 | disposition home or self-care (01) ==
LOC: EC 13:07
DX: R11.2 Nausea with vomiting, unspecified (principal); R10.9 Unspecified abdominal pain; T50.905A Adverse effect of unspecified drugs, medicaments and biological substances, initial encounter
CPT/HCPCS: 36415; 80053; 82150; 83690; 85025; 99284; 96374; 96375; J1200; J2405

== ENCOUNTER 2024-03-19 12:44 | Emergency (ER) | payer BC, OTHER ==
[2024-03-19 13:11] VITALS: TEMP 97.9
--- NOTE | 2024-03-19 15:22 | XR ---
EXAMINATION TYPE: XR chest 2V DATE OF EXAM: 03/19/2024 COMPARISON: 11/23/2018 HISTORY: 39 year-old female shortness of breath, hypertension, difficulty breathing TECHNIQUE: PA and lateral views FINDINGS: The cardiomediastinal silhouette, aorta, and pulmonary vasculature are within normal limits. Lungs an d pleural spaces are clear. IMPRESSION: No acute cardiopulmonary process.
--- NOTE | 2024-03-19 15:31 | ED ---
SOB HPI <Keara - Last Filed: 03/22/24 11:50> - General Source: patient Mode of arrival: ambulatory Limitations: no limitations <Kanchan Duron - Last Filed: 03/22/24 15:06> - General Chief Complaint: Shortness of Breath Stated Complaint: high blodd pressure Time Seen by Provider: 03/19/24 13:10 - History of Present Illness Initial Comments: 39-year-old female past history of anxiety who presents emergency Department reporting shortness of breath. States that she intermittently has shortness of breath. Yesterday she followed up in her primary care office to refill her Adderall. She was found to be hypertensive. 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 Her primary care doctor recommended that she check her blood pressure and if it didn't improve that she go to the emergency department. Patient states that she took her blood pressure home and continue to be high therefore she decided to come in today. She states that she's had no history of high blood pressure. She denies tobacco abuse. Admits to daily alcohol use. States that she drinks 5-8 drinks per night. no current shortness of breath. Has had previous cardiac workup to include echo and Holter monitoring. She denies concern for . No chest pain. No other alleviating, facilities locator modifying factors (Kanchan Duron) - Related Data Previous Rx's Medication Instructions Recorded Cetirizine HCl [Zyrtec] 10 mg PO DAILY #30 tab 02/05/19 Fluticasone Nasal [place] [Flonase 2 spr EA NOSTRIL DAILY #1 bottle 02/05/19 Nasal [place]] predniSONE [Deltasone] 40 mg PO DAILY 5 Days #10 tablet 02/05/19 valACYclovir HCL [Valtrex] 1,000 mg PO Q8HR #21 tab 02/05/19 Sulfamethox-Tmp 800-160Mg [Bactrim 1 tab PO Q12HR #10 tab 08/26/19 DS 800-160 mg] Allergies Allergy/AdvReac Type Severity Reaction Status Date / Time No Known Allergies Allergy Verified 03/19/24 13:11 Review of Systems ROS Other: All systems not noted in ROS Statement are negative. <Keara Bosch - Last Filed: 03/22/24 11:50> ROS Other: All systems not noted in ROS Statement are negative. <Kanchan Duron - Last Filed: 03/22/24 15:06> ROS Statement: Those systems with pertinent positive or pertinent negative responses have been documented in the HPI. Past Medical History Past Medical History: No Reported History History of Any Multi-Drug Resistant Organisms: None Reported Past Surgical History: Section Past Psychological History: No Psychological Hx Reported Smoking Status: Never smoker Past Alcohol Use History: Occasional Past Drug Use History: Marijuana <Kanchan Duron - Last Filed: 03/22/24 15:06> General Exam Limitations: no limitations General appearance: alert, in no apparent distress Head exam: Present: atraumatic, normocephalic, normal inspection Eye exam: Present: normal appearance, PERRL, EOMI. Absent: scleral icterus, conjunctival injection, periorbital swelling ENT exam: Present: normal exam, mucous membranes moist Neck exam: Present: normal inspection. Absent: tenderness, meningismus, lymphadenopathy Respiratory exam: Present: normal lung sounds bilaterally. Absent: respiratory distress, wheezes, rales, rhonchi, stridor Cardiovascular Exam: Present: regular rate, normal rhythm, normal heart sounds. Absent: systolic murmur, diastolic murmur, rubs, gallop, clicks GI/Abdominal exam: Present: soft, normal bowel sounds. Absent: distended, tenderness, guarding, rebound, rigid Extremities exam: Present: normal inspection, full ROM, normal capillary refill. Absent: tenderness, pedal edema, joint swelling, calf tenderness Back exam: Present: normal inspection Neurological exam: Present: alert, oriented X3, CN II-XII intact Psychiatric exam: Present: normal affect, normal mood Skin exam: Present: warm, dry, intact, normal color. Absent: rash <Kanchan Duron - Last Filed: 03/22/24 15:06> Course Vital Signs 03/19/24 03/19/24 03/19/24 13:06 14:30 16:28 Temperature 97.9 F Pulse Rate 85 88 Respiratory 18 17 Rate Blood Pressure 165/94 135/85 159/96 O2 Sat by Pulse 100 98 Oximetry Medical Decision Making - Lab Data Result diagrams: 03/19/24 15:24 03/19/24 15:24 <Keara Bosch - Last Filed: 03/22/24 11:50> - Lab Data Result diagrams: 03/19/24 15:24 03/19/24 15:24 <Kanchan Duron - Last Filed: 03/22/24 15:06> - Medical Decision Making Patient seen and assessed. Blood pressure is 135/85. Symptoms have resolved. Patient and I had an extensive discussion regarding hypertension and signs and symptoms warranting return to the emergency department. We discussed the importance of following up with her primary care provider and the importance of cutting back on alcohol intake. Patient verbalized understanding and was comfortable with discharge home. In my medical judgment there is currently no evidence of an immediate life-thr eatening or surgical condition. Discharge is therefore indicated at this time. Discharge treatment instructions, follow up instructions, and appropriate emergency department return precautions were discussed with the patient and/or medical decision maker. Patient and/or medical decision maker expressed understanding of and agreed with the treatment plan, follow up instructions, and emergency department return precaution. All patient's and/or medical decision maker's questions were answered. The patient was advised that a small risk still exists that a serious condition could develop and was therefore instructed to return to the ED for any changes in symptoms, persistent symptoms, inability to obtain proper follow-up or for any further concerns. Patient received verbal and written instructions for this condition. (Keara Bosch) Was pt. sent in by a medical professional or institution (JOIE Colbert, UTILITY BILL COLLECTION CLERK, urgent care, hospital, or [facility]...) When possible be specific @ -Patient was sent in by her primary care provider Did you speak to anyone other than the patient for history (EMS, parent, family, police, friend...)? What history was obtained from this source @ -No Did you review nursing and triage notes (agree or disagree)? Why? @ -I reviewed and agree with nursing and triage notes Were old charts reviewed (outside hosp., previous admission, EMS record, old EKG, old radiological studies, urgent care reports/EKG's, [facility] records)? Report findings @ -No old charts were reviewed Differential Diagnosis (chest pain, altered mental status, abdominal pain women, abdominal pain men, vaginal bleeding, weakness, fever, dyspnea, syncope, headache, dizziness, GI bleed, back pain, seizure, CVA, palpatations, mental health, musculoskeletal)? @ -Hypertension, PE, coronary disease, EKG interpreted by me (3pts min.). @ -yes and demonstrates sinus rhythm with rate of 79. ND interval 141. QRS 74. QTC 428. No acute ST segment elevations or depressions X-rays interpreted by me (1pt min.). @ -yes and demonstrates no acute process CT interpreted by me (1pt min.). @ -None done U/S interpreted by me (1pt. min.). @ -None done What testing was considered but not performed or refused? (CT, X-rays, U/S, labs)? Why? @ -None What meds were considered but not given or refused? Why? @ -None Did you discuss the management of the patient with other professionals (professionals i.e. , PA, UTILITY BILL COLLECTION CLERK, lab, RT, psych nurse, social security specialist, switchgear repairer, teacher, banking services officer, senior case manager)? Give summary @ -Spoke with Dr. Bosch who will take over care of the patient as her laboratory study results are not back Was smoking cessation discussed for >3mins.? @ -No Was critical care preformed (if so, how long)? @ -No Were there social determinants of health that impacted care today? How? (Homel essness, low income, unemployed, alcoholism, drug addiction, transportation, low edu. Level, literacy, decrease access to med. care, prison, rehab)? @ -No Was there de-escalation of care discussed even if they declined (Discuss DNR or withdrawal of care, Hospice)? DNR status @ -No What co-morbidities impacted this encounter? (DM, HTN, Smoking, COPD, CAD, Cancer, CVA, ARF, Chemo, Hep., AIDS, mental health diagnosis, sleep apnea, morbid obesity)? @ -Alcohol abuse, depression Was patient admitted / discharged? Hospital course, mention meds given and route, prescriptions, significant lab abnormalities, going to OR and other pertinent info. @ -patient seen and evaluated by myself. Thorough history and physical exam is performed. EKG was obtained. There are traces are conducted and pending at this time. Chest x-ray demonstrates no acute process. Patient will be signed out to Dr. Bosch Undiagnosed new problem with uncertain prognosis? @ -No Drug Therapy requiring intensive monitoring for toxicity (Heparin, Nitro, Insulin, Cardizem)? @ -No Were any procedures done? @ -No Diagnosis/symptom? @ -Acute dyspnea, accelerated hypertension, daily alcohol use Acute, or Chronic, or Acute on Chronic? @ -Acute Uncomplicated (without systemic symptoms) or Complicated (systemic symptoms)? @ -Complicated Side effects of treatment? @ -No Exacerbation, Progression, or Severe Exacerbation? @ -No Poses a threat to life or bodily function? How? (Chest pain, [place], NM, pneumonia, PE, COPD, DKA, ARF, appy, cholecystitis, CVA, Diverticulitis, Homicidal, Suicidal, threat to staff... and all critical care pts) @ -No (Kanchan Duron) - Lab Data Lab Results 03/19/24 03/19/24 03/19/24 Range/Units 15:24 15:24 15:24 WBC 6.4 (3.8-10.6) k/uL RBC 4.38 (3.80-5.40) m/uL Hgb 13.9 (11.4-16.0) gm/dL Hct 42.2 (34.0-46.0) % MCV 96.4 (80.0-100.0) fL MCH 31.6 (25.0-35.0) pg MCHC 32.8 (31.0-37.0) g/dL RDW 12.7 (11.5-15.5) % Plt Count 237 (150-450) k/uL MPV 8.9 Neutrophils % 60 % Lymphocytes % 29 % Monocytes % 6 % Eosinophils % 3 % Basophils % 1 % Neutrophils # 3.8 (1.3-7.7) k/uL Lymphocytes # 1.8 (1.0-4.8) k/uL Monocytes # 0.4 (0-1.0) k/uL Eosinophils # 0.2 (0-0.7) k/uL Basophils # 0.1 (0-0.2) k/uL Sodium (137-145) mmol/L Potassium (3.5-5.1) mmol/L Chloride (98-107) mmol/L Carbon Dioxide (22-30) mmol/L Anion Gap mmol/L BUN (7-17) mg/dL Creatinine (0.52-1.04) mg/dL Est GFR (CKD-EPI)AfAm (>60 ml/min/1.73 sqM) Est GFR (CKD-EPI)NonAf (>60 ml/min/1.73 sqM) Glucose (74-99) mg/dL Calcium (8.4-10.2) mg/dL Total Bilirubin (0.2-1.3) mg/dL AST (14-36) U/L ALT (4-34) U/L Alkaline Phosphatase (38-126) U/L Troponin I (0.000-0.034) ng/mL Total Protein (6.3-8.2) g/dL Albumin (3.5-5.0) g/dL TSH (0.465-4.680) mIU/L Urine Color Colorless Urine Appearance Clear (Clear) Urine pH 6.5 (5.0-8.0) Ur Specific [place] 1.007 (1.001-1.035) Urine Protein Negative (Negative) Urine Glucose (UA) Negative (Negative) Urine Ketones Negative (Negative) Urine Blood Negative (Negative) Urine Nitrite Negative (Negative) Urine Bilirubin Negative (Negative) Urine Urobilinogen <2.0 (<2.0) mg/dL Ur Leukocyte Esterase Negative (Negative) Urine HCG, Qual Not Detected (Not Detectd) 03/19/24 03/19/24 Range/Units 15:24 15:24 WBC (3.8-10.6) k/uL RBC (3.80-5.40) m/uL Hgb (11.4-16.0) gm/dL Hct (34.0-46.0) % MCV (80.0-100.0) fL MCH (25.0-35.0) pg MCHC (31.0-37.0) g/dL RDW (11.5-15.5) % Plt Count (150-450) k/uL MPV Neutrophils % % Lymphocytes % % Monocytes % % Eosinophils % % Basophils % % Neutrophils # (1.3-7.7) k/uL Lymphocytes # (1.0-4.8) k/uL Monocytes # (0-1.0) k/uL Eosinophils # (0-0.7) k/uL Basophils # (0-0.2) k/uL Sodium 138 (137-145) mmol/L Potassium 4.3 (3.5-5.1) mmol/L Chloride 107 (98-107) mmol/L Carbon Dioxide 25 (22-30) mmol/L Anion Gap 6 mmol/L BUN 7 (7-17) mg/dL Creatinine 0.59 (0.52-1.04) mg/dL Est GFR (CKD-EPI)AfAm >90 (>60 ml/min/1.73 sqM) Est GFR (CKD-EPI)NonAf >90 (>60 ml/min/1.73 sqM) Glucose 100 H (74-99) mg/dL Calcium 9.9 (8.4-10.2) mg/dL Total Bilirubin 1.1 (0.2-1.3) mg/dL AST 58 H (14-36) U/L ALT 41 H (4-34) U/L Alkaline Phosphatase 63 (38-126) U/L Troponin I <0.012 (0.000-0.034) ng/mL Total Protein 7.5 (6.3-8.2) g/dL Albumin 4.7 (3.5-5.0) g/dL TSH 2.260 (0.465-4.680) mIU/L Urine Color Urine Appearance (Clear) Urine pH (5.0-8.0) Ur Specific [place] (1.001-1.035) Urine Protein (Negative) Urine Glucose (UA) (Negative) Urine Ketones (Negative) Urine Blood (Negative) Urine Nitrite (Negative) Urine Bilirubin (Negative) Urine Urobilinogen (<2.0) mg/dL Ur Leukocyte Esterase (Negative) Urine HCG, Qual (Not Detectd) Disposition Is patient prescribed a controlled substance at d/c from ED?: No <Keara Boshc - Last Filed: 03/22/24 11:50> <Kanchan Duron - Last Filed: 03/22/24 15:06> Clinical Impression: High blood pressure, Stress at home, Elevated LFTs Disposition: HOME SELF-CARE Condition: Good Instructions (If sedation given, give patient instructions): Hypertension (ED) Additional Instructions: Every disease is a spectrum and a small chance still exists that a serious condition could develop, for this reason, please monitor yourself closely for new, changing or worsening symptoms, symptoms that persist beyond 48 hours, chest pain, difficulty in breathing, swelling in your legs, new numbness, weakness, facial droop, slurred speech, sudden onset headache like you have never had before/worst headache of your life, decreased urine output, fever, inability to tolerate/keep down fluids or your medications, inability to follow up with outpatient providers as instructed and should you experience these symptoms or should you have any further concerns for your wellbeing please return to the ED or call 911 immediately. Please try to gradually cut back on alcohol intake. PLEASE call your primary care physician as soon as possible to arrange / discuss plan for followup appointment. Appointment in the next 1-3 days is strongly encouraged if possible. PLEASE let us know here before you leave if there is anything further we can do to be of any assistance. Take care and feel Better! Referrals: Homar Mauro MD [Primary Care Provider] - 1-2 days
[2024-03-19 15:37] LABS: Appearance,Urine Clear (Clear); Basophils # (A) 0.1 k/uL (0-0.2); Basophils % (A) 1 %; Bilirubin,Urine Negative (Negative); Blood,Urine Negative (Negative); Color,Urine Colorless; Eosinophils # (A) 0.2 k/uL (0-0.7); Eosinophils % (A) 3 %; Glucose,Urine (UA) Negative (Negative); HCT 42.2 % (34.0-46.0); HGB 13.9 gm/dL (11.4-16.0); Ketones,Urine Negative (Negative); Leukocyte Esterase,Urine Negative (Negative); Lymphocytes # (A) 1.8 k/uL (1.0-4.8); Lymphocytes % (A) 29 %; MCH 31.6 pg (25.0-35.0); MCHC 32.8 g/dL (31.0-37.0); MCV 96.4 fL (80.0-100.0); Mean Platelet Volume 8.9; Monocytes # (A) 0.4 k/uL (0-1.0); Monocytes % (A) 6 %; Neutrophils # (A) 3.8 k/uL (1.3-7.7); Neutrophils % (A) 60 %; Nitrite,Urine Negative (Negative); PH, Urine 6.5 (5.0-8.0); Platelet Count 237 k/uL (150-450); Protein,Urine Negative (Negative); RBC 4.38 m/uL (3.80-5.40); RDW 12.7 % (11.5-15.5); Specific Gravity,Urine 1.007 (1.001-1.035); Urobilinogen,Urine <2.0 mg/dL (<2.0); WBC 6.4 k/uL (3.8-10.6)
[2024-03-19 15:52] LABS: ALT 41 U/L (4-34); African American GFR (CKD) >90 (>60 ml/min/1.73 sqM); Albumin 4.7 g/dL (3.5-5.0); Anion Gap 6 mmol/L; Blood Urea Nitrogen 7 mg/dL (7-17); Calcium 9.9 mg/dL (8.4-10.2); Carbon Dioxide 25 mmol/L (22-30); Chloride 107 mmol/L (98-107); Glucose 100 mg/dL (74-99); Non-African American GFR(CKD) >90 (>60 ml/min/1.73 sqM); Sodium 138 mmol/L (137-145); Total Bilirubin 1.1 mg/dL (0.2-1.3); Total Protein 7.5 g/dL (6.3-8.2)
[2024-03-19 15:56] LABS: AST 58 U/L (14-36); Alkaline Phosphatase 63 U/L (38-126); Potassium 4.3 mmol/L (3.5-5.1)
[2024-03-19 16:28] VITALS: BP 159/96; PULSE 88; RESP 17
== END 2024-03-19 17:00 | disposition home or self-care (01) ==
LOC: EC 12:44
DX: I10 Essential (primary) hypertension (principal); R94.5 Abnormal results of liver function studies
CPT/HCPCS: 36415; 71046; 80053; 81003; 81025; 84443; 84484; 85025; 93005; 99285